=== PATIENT | female | born 1930 | race Caucasian/White ===

== ENCOUNTER 2017-05-18 15:52 | Inpatient (IN) ==
[2017-05-18] MEDS ORDERED: Piperacillin/Tazobactam 3.375 GM in D5% in Water (Mini-Bag+) 100 ML IVPB ONE (16:45)
--- NOTE | 2017-05-18 16:49 | Emergency Department Note ---
Disposition Clinical Impression: Bowel perforation Disposition: Admitted As Inpatient Condition: Serious Referrals: NONE,PCP [Primary Care Provider] - Forms: Work/School Release, ED Satisfaction Letter Time of Disposition: 16:49 General Adult HPI - General Chief complaint: ED Abdominal Pain Stated complaint: abd pain Time Seen by Provider: 05/18/17 16:05 Source: patient, EMS Limitations: no limitations - History of Present Illness Pain Scale: 0 - Related Data Home Medications Medication Instructions Recorded Confirmed Atenolol [Tenormin] 50 mg PO DAILY 08/24/15 05/18/17 Omeprazole [PriLOSEC] 20 mg PO DAILY 08/31/16 05/18/17 Allergies Allergy/AdvReac Type Severity Reaction Status Date / Time No Known Allergies Allergy Verified 08/31/16 08:17 Past Medical History - Past Medical History Medical history: Reports: GERD, glaucoma, hypertension, other Surgical history: Reports: knee replacement Psychiatric history: Reports: no psych history - Social History Smoking Status: Never smoker Smokeless Tobacco Status: No Alcohol use: Reports: none Drug use: Reports: none Physical Exam - General Limitations: no limitations General appearance: alert, in no apparent distress Course Vital Signs Temperature 103.1 F H 05/18/17 15:57 Pulse Rate 108 05/18/17 15:57 Respiratory Rate 24 05/18/17 15:57 Blood Pressure 160/75 05/18/17 15:57 O2 Sat by Pulse Oximetry 95 05/18/17 15:57 Temperature 103.1 F H 05/18/17 15:57 Pulse Rate 108 05/18/17 15:57 Respiratory Rate 24 05/18/17 15:57 Blood Pressure 160/75 05/18/17 15:57 O2 Sat by Pulse Oximetry 95 05/18/17 15:57 Oxygen Delivery Oxygen Delivery Room Air Attestation Statement - Attestation Attestation: I did not participate in the care of this patient. The patient presented as a transfer from an outside facility as a staff from visit for the surgeon to be admitted for bowel perforation. He did request that I order an IV and IV Zosyn. This was done. I did not otherwise participate in the care of this patient
[2017-05-18] MEDS ORDERED: *HR* Succinylcholine 200 MG/10 ML VIAL IVP ONE (17:08)
[2017-05-18] MEDS ORDERED: *HR* Etomidate 40 MG/20 ML VIAL IVP ONE (17:08)
[2017-05-18] MEDS ORDERED: Lidocaine -MPF 2% 2 ML VIAL ONE (17:08)
[2017-05-18] MEDS ORDERED: *HR* FentaNYL (PF) 100 MCG/2 ML VIAL ONE (17:10)
[2017-05-18] MEDS ORDERED: *HR* Rocuronium Bromide 50 MG/5 ML VIAL ONE (17:11)
--- NOTE | 2017-05-18 17:26 | Anesthesia Evaluation PreOp ---
Date of Encounter: 05/18/17 Time of Encounter: 17:59 - Past History Planned Operation: exploratory celiotomy Cardiac History: HTN Pulmonary History: Denies Any Significant HX MATERIAL ASSEMBLER History: Denies Any Significant HX Other Medical History: Other (glaucoma, free peritoneal air (likely perforated sigmoid per CT abdomen/pelvis)) Alcohol Use: none Drug use: none Medications and Allergies Atenolol [Tenormin] 50 mg PO DAILY 08/24/15 [History] Omeprazole [PriLOSEC] 20 mg PO DAILY 08/31/16 [History] Acetaminophen [Tylenol] 500 mg PO Q6HR PRN 05/18/17 [History] Diclofenac Sodium [Voltaren] 1 appl TP QID PRN 05/18/17 [History] Latanoprost [Xalatan] 1 drop OP HS 05/18/17 [History] Meloxicam [Mobic] 7.5 mg PO DAILY 05/18/17 [History] Allergies No Known Allergies Allergy (Verified 08/31/16 08:17) HAS ADVERSE REACTION TO AN ANTIBIOTIC, NAME UNKNOWN - Meds/Allergy Pre-op Review Medications Reviewed: Yes Allergies Reviewed: Yes Beta Blockers on Current Med List: Yes (atenolol) If Beta Blockers taken, Date/Time (Last Dose taken): 05-18-17 atnolol 8 am Anesthesia Results - Labs Laboratory Tests 05/18/17 05/18/17 05/18/17 13:30 13:30 13:30 WBC 8.3 Hgb 12.8 Hct 37.5 Plt Count 182 PT 12.4 H INR 1.1 APTT 36.2 H VBG Lactic Acid Sodium 138 Potassium 4.6 H Chloride 103 Carbon Dioxide 23 BUN 20 Creatinine 0.99 Est GFR ( Amer) > 60 Est GFR (Non-Af Amer) 53 L BUN/Creatinine Ratio 20 Glucose 103 H Calculated Osmolality 289 Calcium 9.3 05/18/17 13:30 WBC Hgb Hct Plt Count PT INR APTT VBG Lactic Acid 1.8 Sodium Potassium Chloride Carbon Dioxide BUN Creatinine Est GFR ( Amer) Est GFR (Non-Af Amer) BUN/Creatinine Ratio Glucose Calculated Osmolality Calcium - Imaging EKG: report reviewed, image reviewed (: SINUS BRADYCARDIA MARKED LEFT AXIS DEVIATION MODERATE VOLTAGE CRITERIA FOR LVH, CONSIDER NORMAL VARIANT) Anesthesia Exam Last Vital Signs Temp 103.1 F H 05/18/17 15:57 Pulse 103 05/18/17 16:46 Resp 22 05/18/17 16:46 BP 132/61 05/18/17 16:46 Pulse Ox 95 05/18/17 16:46 - HEENT Pupil (Motor): Pupils equal, EOMI Mallampati: III Teeth: Missing, Poor dentition Oral Opening: Greater than 3 - MATERIAL ASSEMBLER LOC: Oriented MATERIAL ASSEMBLER Motor: Normal RUE, Normal LUE, Normal RLE, Normal LLE, Normal Face - Cardiac Rhythm: Regular Murmur: None - Pulmonary Breath Sounds: bilateral Clear Respiratory Effort: Symmetrical Anesthesia Assess/Plan ASA Score: 2, E Modified Nellie Scale for Level of Consciousness: Cooperative, oriented, and tranquil Anesthetic Plan: General Monitoring Plan: Standard Monitors Recovery Plan: ICU
[2017-05-18] MEDS ORDERED: Lidocaine -MPF 4% 5 ML AMPUL ONE (18:24)
--- NOTE | 2017-05-18 18:30 | General Surg History&Physical ---
Date of Encounter: 05/18/17 Time of Encounter: 16:50 History of Present Illness Chief complaint: Acute abdominal pain, pneumoperitoneum consistent with perforated viscus HPI: Ms. Callahan is a 87 year old female transferred from [facility] after tenting there was approximately at 48 hour history of abdominal pain. Patient indicates his symptoms started yesterday but became acutely intense today. This was not associated with any nausea or vomiting. The patient presented to the [facility] ED for further evaluation and treatment. She was in significant distress, but afebrile and hemodynamically stable. White count was 8.3 with a hemoglobin of 12.8. CT of the abdomen and pelvis demonstrated scattered foci of air in the upper and lower abdomen/pelvis. Stomach and duodenum were unremarkable. A stable diverticulum in the descending duodenum was noted. There was no mural thickening of the stomach, duodenum, or jejunum. Numerous diverticula of the sigmoid colon are described with a small amount of free air in the right lower pelvis. Cholelithiasis without obvious inflammatory changes of the gallbladder is also described. Findings were consistent with a perforated viscus. The exact location of the perforation could not be identified. The patient was transferred to [facility] ED for surgical evaluation and possible surgery Past medical history: GERD, glaucoma, hypertension Surgical history: Total knee replacement Allergies: No known drug allergies Medications: Atenolol 50 mg by mouth daily Omeprazole 20 mg by mouth daily Social history: Patient is and lives with her spouse of 68 years; she does not smoke, never has, she denies any alcohol or illicit drug use. Physical examination: An elderly patient resting comfortably in her ED bed. She appeared to be in no acute distress, but this is related to IV morphine administered prior to my presentation to bedside. The patient was febrile to 103.1, pulse 108, respirations 24, blood pressure 160/75. 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 No obvious masses - though the abdominal exam was limited by the involuntary guarding. Bowel sounds were active. Did not elicit any rebound. Extremities: No obvious clubbing cyanosis or edema though answers arthritic changes are noted in multiple joints of the hands. Laboratories: White count 8.3, hemoglobin 12.8, hematocrit 37.5, platelet count 182,000; differential is unremarkable Sodium 138, potassium 4.6, chloride 103, BUN 20, creatinine 0.99. eGFR 53 Comparison with labs dated 09/08/16 - the results are essentially stable. Urinalysis: PH 7.0, specific gravity 1.020; nitrates positive, small amount of leukocyte esterase with 0-3 red cells per high-powered field 5-15 white cells per high-power field. Impression: #1 Abdominal pain secondary perforated viscus. She was focally tender in the left upper quadrant but on my review of the CT with [facility] - it is considered most likely the pneumoperitoneum is due to a colonic perforation. #2 fever and tachycardia - 2 SIRS criteria for sepsis #3 hypertension #4 GERD Recommendations: IV fluids, broad-spectrum IV antibiotics to cover potential colonic francisco; IV pain control and surgery. The patient and her family "want everything done". An exploratory celiotomy was discussed in detail. Risks include Hemorrhage, infection, intra-abdominal abscess, injury to adjacent structures , pneumonia/respiratory failure; cardiac dysrhythmia and/or UT. If colonic perforation is encountered - a colostomy will become necessary. The patient hopes this will not be necessary but understands should a colostomy be created. The patient and her family have expressed understanding. I attempted to answer all questions. We will proceed to the OR ALAN. Consent has been obtained. Post op transfer to ICU has been arranged. Past Med Surg Social Fam HX - Past Medical History Medical history: GERD, glaucoma, hypertension, other Psychiatric history: no psych history - Past Surgical History Surgical History: knee replacement - Social History Smoking Status: Never smoker Smokeless Tobacco Status: No Alcohol use: none Drug use: none Medications and Allergies Atenolol [Tenormin] 50 mg PO DAILY 08/24/15 [History] Omeprazole [PriLOSEC] 20 mg PO DAILY 08/31/16 [History] Acetaminophen [Tylenol] 500 mg PO Q6HR PRN 05/18/17 [History] Diclofenac Sodium [Voltaren] 1 appl TP QID PRN 05/18/17 [History] Latanoprost [Xalatan] 1 drop OP HS 05/18/17 [History] Meloxicam [Mobic] 7.5 mg PO DAILY 05/18/17 [History] Allergies No Known Allergies Allergy (Verified 08/31/16 08:17) HAS ADVERSE REACTION TO AN ANTIBIOTIC, NAME UNKNOWN Review of Systems All systems PM: A 10-system review of systems was performed and is negative for pertinent findings except as documented above in the HPI. General Surgery Exam Initial Vital Signs Temp Pulse Resp BP Pulse Ox 103.1 F H 108 24 160/75 95 05/18/17 15:57 05/18/17 15:57 05/18/17 15:57 05/18/17 15:57 05/18/17 15:57 Results - Labs All other labs normal.
[2017-05-18] MEDS ORDERED: Lacri-Lube 3.5 GM TUBE ONE (18:41)
[2017-05-18] MEDS ORDERED: *HR* HYDROmorphone 2 MG/ML SYRINGE ONE (19:05)
[2017-05-18] MEDS ORDERED: Dexamethasone 4 MG/ML VIAL ONE (19:50)
[2017-05-18] MEDS ORDERED: Ondansetron 4 MG/2 ML VIAL ONE (19:50)
[2017-05-18] MEDS ORDERED: Neostigmine Methylsulfate 3 MG/3 ML SYRINGE ONE (19:51)
[2017-05-18] MEDS ORDERED: Acetaminophen 325 MG TABLET PO PRN (20:41)
[2017-05-18] MEDS ORDERED: *HR* HYDROcodone/Acet 5/325 mg TABLET PO PRN (20:44)
[2017-05-18] MEDS ORDERED: *HR* HYDROmorphone (PF) 1 MG/ML SYRINGE IVP PRN (20:44)
[2017-05-18] MEDS ORDERED: Ondansetron 4 MG/2 ML VIAL IVP PRN (20:44)
[2017-05-18] MEDS: Ringers Solution, Lactated 1,000 ML IVC SCH (21:00)
--- NOTE | 2017-05-18 21:02 | Operative Note ---
Date of procedure: 05/18/17 Pre-op diagnosis: acute abd pain, pneumoperitoneum Post-op diagnosis: same Procedure: exploratory celiotomy, incidental appendectomy Complications: none apparent Anesthesia: GETA Surgeon: Gagan Infante Estimated blood loss (cc): 5 IV fluids (cc): 1,500 Specimen: appendix Condition: stable Disposition: PACU Procedure in Detail: The patient was brought to the operating room where she was placed supine upon the operating room table. The patient was appropriately identified as to person and procedure. The accuracy of this information was confirmed by the procedure team. Patient was then intubated and anesthetized under the supervision of Dr. Florian Gerardo. The abdomen was prepped and draped in usual sterile fashion. A Arndt catheter was inserted. An OG tube was passed. A midline incision was then created with a #10 scalpel beginning midway between the umbilicus and the xiphoid extending caudal to the umbilicus. The incision was extended to the fascia. Bleeding points were controlled with electrocautery. The fascia was divided in the midline. The abdominal cavity was entered atraumatically. Exposure was facilitated with the use of an omni- Tract self-retaining retractor. In entering the abdominal cavity, a segment of inflamed mid to distal jejunum was encountered. The antimesenteric border was inflamed and hemorrhagic but there was no obvious perforation. The small bowel was examined from the ligament of Treitz to the ileocecal valve. Except for this 15-20 cm segment of inflamed jejunum no other abnormalities were detected. There was no perforation. The cecum appeared normal and was filled with air. The attached appendix appeared normal. The mesoappendix was divided at the junction between the appendix and cecum. The appendix was transected using an Ethicon [place] 30 mm stapler. The mesoappendix was divided with the aid of a Covidien impact dissector. The cecum and ascending colon was mobilized by incising the lateral peritoneal reflection demonstrating no abnormalities. The transverse colon was filled with air with no inflammation or wall thickening or obvious perforation. The splenic flexure and descending colon also appeared normal. The sigmoid colon was notable for extensive diverticulosis but there was no obvious perforation. A small amount of inflammatory fluid was encountered in the pelvis. This was a robotically and anaerobically cultured and then evacuated with the suction device. The uterus appeared multiparous without significant abnormality or fibroids. Tubes and ovaries were identified bilaterally and appeared normal. The ovaries were atrophic. With no bowel findings I turned my attention to the stomach. The anterior stomach demonstrated no inflammation, wall thickening, or perforation. The lesser sac was entered, the posterior gastric wall was also intact. The hepatic flexure was mobilized to allow inspection and mobilization (kocherization) of the duodenum. The gallbladder was distended, the demonstrated stone on CT was not palpable. There is no wall thickening pericholecystic fluid or obvious inflammation. The liver appeared grossly unremarkable. The source of the patient's abdominal pain and pneumoperitoneum was not apparent on this initial exploration/examination. The stomach gallbladder liver were all reexamined. The duodenum was reexamined. Small bowel was again examined from the ligament of Treitz to the ileocecal valve with no abnormalities encountered other than the inflamed segment described earlier. The colon was again examined from the ileocecal valve to the rectosigmoid. The sigmoid was mobilized by incising the lateral peritoneal reflection. No perforation, succus entericus or stool was evident the peritoneal cavity. Dry lap sponges were placed in the pelvis, along the left paracolic gutter, along the right paracolic gutter and in the lesser sac. With examination and manipulation no abnormal staining of the lap sponges was encountered. The lap sponges were removed. Sponge count was conducted and found to be the peritoneum was closed with a running interlocking 0 Vicryl. The fascia was closed with interrupted [id number] of 0 Vicryl. The subcutaneous tissue was reapproximated with running 3-0 Vicryl. Skin edges were approximated with rhiannon. Dressings were applied. At the completion of surgery, needle, sponge, and instrument counts were correct. The patient was taken to ICU for continued observation and postoperative monitoring.
[2017-05-19] MEDS: Ringers Solution, Lactated 1,000 ML IVC SCH (01:23)
[2017-05-19 01:51] LABS: BUN/Creatinine Ratio 18 (6-26); Blood Urea Nitrogen 17 mg/dL (7-20); Calcium 8.2 mg/dL (8.6-10.8); Carbon Dioxide 24 mEq/L (19-29); Chloride 102 mEq/L (98-109); Glucose 131 mg/dL (70-99); Osmolality,Calculated 279 (280-300); Potassium 4.1 mEq/L (3.5-4.5); Sodium 133 mEq/L (136-145); eGFR For African Americans > 60 (> 60); eGFR For Non-African Americans 58 (> 60)
[2017-05-19 02:17] LABS: Hematocrit 37.2 % (35.3-44.9); Mean Corpuscular HGB Conc 32.3 g/dL (31.6-35.5); Mean Corpuscular Hemoglobin 28.2 pg (28.0-33.3); Mean Corpuscular Volume 87.5 fL (83.0-100.0); Platelet Count 169 K/mcL (140-400); Red Blood Count 4.25 M/mcL (3.82-4.97); Red Cell Distribution Width 13.2 % (11.5-14.5)
[2017-05-19 03:25] LABS: Lymphocytes # 1.3 K/mcL (0.6-4.6); Monocytes # 0.3 K/mcL (0.0-1.3); Neutrophils # 13.9 K/mcL (1.6-8.9); Platelet Estimate Normal (Normal)
--- NOTE | 2017-05-19 09:20 | General Surgery Progress Note ---
Date of Encounter: 05/19/17 Time of Encounter: 09:13 Subjective Patient reports: feels better Narrative: General Surgery - POD #1 Patient has remained afeb, hemodynamically stable since surgery. Preoperative pain is resolved and has not recurred Maximum temperature 99.5, pulse 79, respirations 20, blood pressure 154/74 Lungs: bibasilar rales; weak cough Cardiac: Regular rate, no appreciable murmur Abdomen: Soft, active bowel sounds. Minimal roberto-incisional pain. Incision clean and dry. Urine output 325 mL last evening, 700 mL so far today Laboratories: White count 16.1 with 30% bands and 13.9% neutrophils. - markedly elevated from preoperative values, likely response to surgery Hemoglobin 12.0, hematocrit 37. Electrolytes, BUN, creatinine remains stable, sodium is noted low at 133. eGFR increased to 58 (previously 53) Impression: Postoperative day 1, status post exploratory celiotomy with incidental appendectomy after patient presented to [facility] ED with acute abdominal pain with radiologic findings pneumoperitoneum. Exploration failed to identify the source of the intraperitoneal air Postoperative status stable Plan: Transfer to general bed Objective Vital Signs - Last 8 Hours Temp Pulse Resp BP Pulse Ox 05/19/17 07:39 79 96 05/19/17 07:31 99.5 F 05/19/17 07:00 79 20 154/74 96 05/19/17 06:30 72 19 146/65 95 05/19/17 05:00 73 14 138/65 95 05/19/17 04:38 97.3 F L 05/19/17 04:15 80 17 144/69 95 05/19/17 04:00 81 17 144/69 95 05/19/17 03:00 77 15 150/71 96 05/19/17 02:00 80 12 142/64 97 Intake and Output 05/18/17 05/19/17 05/19/17 23:59 07:59 15:59 Intake Total 100 / 100 1000 / 1000 240 / 240 Output Total 330 / 330 600 / 600 100 / 100 Balance -230 / -230 400 / 400 140 / 140 Intake: IV Fluids 100 / 100 1000 / 1000 Lactated Ringers 1,000 ML 1000 / 1000 @ 100 mls/hr IVC .Q10H PACO Rx#:[id number] Zosyn 3.375 GM In 100 / 100 Dextrose 5% (Minibag+) 100 ML 100 ML @ 25 mls/hr IVPB ONCE ONE Rx#: [id number] Oral 0 / 0 0 / 0 240 / 240 Output: Estimated Blood Loss 5 / 5 Catheter 325 / 325 600 / 600 100 / 100 Other: Meal Breakfast Percent of Meal Consumed 100% Weight 64.1 kg 63.2 kg Blood Glucose* 137 Patient Weight 05/19/17 23:59 Weight 63.2 kg - Labs 05/19/17 01:29 05/19/17 01:29 Diabetes panel 05/19/17 Range/Units 01:29 Sodium 133 L (136-145) mEq/L Potassium 4.1 (3.5-4.5) mEq/L Chloride 102 (98-109) mEq/L Carbon Dioxide 24 (19-29) mEq/L BUN 17 (7-20) mg/dL Creatinine 0.92 (0.57-1.11) mg/dL Glucose 131 H (70-99) mg/dL Calcium 8.2 L (8.6-10.8) mg/dL Calcium panel 05/19/17 Range/Units 01:29 Calcium 8.2 L (8.6-10.8) mg/dL Pituitary panel 05/19/17 Range/Units 01:29 Sodium 133 L (136-145) mEq/L Potassium 4.1 (3.5-4.5) mEq/L Chloride 102 (98-109) mEq/L Carbon Dioxide 24 (19-29) mEq/L BUN 17 (7-20) mg/dL Creatinine 0.92 (0.57-1.11) mg/dL Glucose 131 H (70-99) mg/dL Calcium 8.2 L (8.6-10.8) mg/dL Adrenal panel 05/19/17 Range/Units 01:29 Sodium 133 L (136-145) mEq/L Potassium 4.1 (3.5-4.5) mEq/L Chloride 102 (98-109) mEq/L Carbon Dioxide 24 (19-29) mEq/L BUN 17 (7-20) mg/dL Creatinine 0.92 (0.57-1.11) mg/dL Glucose 131 H (70-99) mg/dL Calcium 8.2 L (8.6-10.8) mg/dL - VTE Documentation of Mechanical Device: Intermittent pneumatic compression device Consult Discharge Plan - Plan Referrals: Christian Grayson [Primary Care Provider] -
[2017-05-19] MEDS ORDERED: Acetaminophen 325 MG TABLET PO PRN (11:13)
[2017-05-19] MEDS ORDERED: *HR* HYDROmorphone (PF) 1 MG/ML SYRINGE IVP PRN (11:13)
[2017-05-19] MEDS ORDERED: *HR* HYDROcodone/Acet 5/325 mg TABLET PO PRN (11:13)
[2017-05-19] MEDS: Albuterol 2.5 MG/3 ML NEBULIZER IH SCH ×3 (15:54→22:31)
[2017-05-19] MEDS: Ondansetron 4 MG/2 ML VIAL IVP PRN (19:49)
[2017-05-19] MEDS ORDERED: Latanoprost 2.5 ML BOTTLE LEFT EYE SCH (21:00)
[2017-05-20 03:27] LABS: Basophils % 0.1 %; Eosinophils % 0.1 %; Hematocrit 35.5 % (35.3-44.9); Hemoglobin 11.6 g/dL (11.5-15.4); Immature Granulocytes % 0.5 % (0-4); Lymphocytes % 6.7 %; Mean Corpuscular HGB Conc 32.7 g/dL (31.6-35.5); Mean Corpuscular Hemoglobin 28.7 pg (28.0-33.3); Mean Corpuscular Volume 87.9 fL (83.0-100.0); Mean Platelet Volume 10.8 fL (9.4-12.4); Monocytes # 0.6 K/mcL (0.0-1.3); Monocytes % 3.8 %; Neutrophils # 13.4 K/mcL (1.6-8.9); Platelet Count 169 K/mcL (140-400); Red Blood Count 4.04 M/mcL (3.82-4.97); Red Cell Distribution Width 13.3 % (11.5-14.5); Segmented Neutrophils % 88.8 %
[2017-05-20] MEDS: Ondansetron 4 MG/2 ML VIAL IVP PRN (03:40)
[2017-05-20 03:41] LABS: Calcium 8.6 mg/dL (8.6-10.8)
[2017-05-20] MEDS: Albuterol 2.5 MG/3 ML NEBULIZER IH SCH ×4 (03:53→21:59)
[2017-05-20 15:00] VITALS: BP 173/81
--- NOTE | 2017-05-20 17:17 | General Surgery Progress Note ---
Date of Encounter: 05/20/17 Time of Encounter: 17:17 Subjective Patient reports: feels better, no bowel movement Narrative: General Surgery - Progress note / discharge summary Patient indicates she feels better; denies any abdominal pain. He does admit to nausea but no emesis. Afebrile, currently 98.2; pulse 75, respirations 16, blood pressure 173/81. Lungs: Clear to auscultation no obvious pain on deep inspiration Abdomen: Soft, no obvious tenderness. No obvious intra-abdominal masses. Active bowel sounds Patient complaining of no BM for the last 48 hours, however, at the time of exploratory celiotomy bowel was not distended but actually fairly decompressed Laboratories: Leukocytosis persists, 15,000 (previously 16.1) hemoglobin 11.6, hematocrit 35.5 Band neutrophils resolved, neutrophils still elevated at 13.4% Electrolytes essentially unchanged, BUN 21, creatinine 1.07; eGFR has diminished to 48 Urine culture obtained on presentation at [facility] E coli sensitive to all ATB except TMP/sulfa Pelvic fluid culture (at the time of surgery) - also Escherichia coli sensitivities pending Impression: Abdominal pain with radiologic evidence of pneumoperitoneum - status post exploratory celiotomy with no significant findings Diverticulosis sigmoid colon UTI secondary to Escherichia coli Patient feeling much improved and anxious to go home. Status satisfactory for management as outpatient Plan: Discharge home Follow up in the office within 4 days - patient to call office in AM to make follow up appointment Patient may consume regular diet Rx ondansetron ODT for nausea RX cefazolin 500 mg po TID x 5 days Tylenol, ibuprofen, Motrin, ADvil as needed for pain. Activities as tolerated, no lifting more than 20# Resume home meds Objective Vital Signs - Last 8 Hours Temp Pulse Resp BP Pulse Ox 05/20/17 14:59 98.2 F 75 16 173/81 92 05/20/17 11:04 98.7 F 73 14 152/72 92 Intake and Output 05/20/17 05/20/17 05/20/17 07:59 15:59 23:59 Intake Total 0 / 0 0 / 0 Output Total 450 / 450 1 / 1 Balance -450 / -450 -1 / -1 Intake: Oral 0 / 0 0 / 0 Output: Urine 450 / 450 0 / 0 Emesis 1 / 1 Other: Meal Lunch Percent of Meal Consumed 5% # Voids 1 3 - Labs 05/20/17 02:49 05/20/17 02:49 Diabetes panel 05/20/17 Range/Units 02:49 Sodium 134 L (136-145) mEq/L Potassium 4.0 (3.5-4.5) mEq/L Chloride 101 (98-109) mEq/L Carbon Dioxide 24 (19-29) mEq/L BUN 21 H (7-20) mg/dL Creatinine 1.07 (0.57-1.11) mg/dL Glucose 113 H (70-99) mg/dL Calcium 8.6 (8.6-10.8) mg/dL Calcium panel 05/20/17 Range/Units 02:49 Calcium 8.6 (8.6-10.8) mg/dL Pituitary panel 05/20/17 Range/Units 02:49 Sodium 134 L (136-145) mEq/L Potassium 4.0 (3.5-4.5) mEq/L Chloride 101 (98-109) mEq/L Carbon Dioxide 24 (19-29) mEq/L BUN 21 H (7-20) mg/dL Creatinine 1.07 (0.57-1.11) mg/dL Glucose 113 H (70-99) mg/dL Calcium 8.6 (8.6-10.8) mg/dL Adrenal panel 05/20/17 Range/Units 02:49 Sodium 134 L (136-145) mEq/L Potassium 4.0 (3.5-4.5) mEq/L Chloride 101 (98-109) mEq/L Carbon Dioxide 24 (19-29) mEq/L BUN 21 H (7-20) mg/dL Creatinine 1.07 (0.57-1.11) mg/dL Glucose 113 H (70-99) mg/dL Calcium 8.6 (8.6-10.8) mg/dL - VTE Documentation of Mechanical Device: Intermittent pneumatic compression device Consult Discharge Plan - Plan Referrals: Christian Grayson [Primary Care Provider] -
--- NOTE | 2017-05-20 17:20 | Discharge Summary ---
Outpatient Proc Discharge Plan - Plan Additional Instructions: Regular diet Patient may shower, wash incision with soap and water Activity as tolerated; lifting limited to less than 20 pounds Follow-up my office, 05/24/17. Patient to call office name to make this appointment Patient to follow up tomorrow if recurrent abdominal pain, worsening nausea, fevers or chills. Prescription for ondansetron ODT for nausea Prescription for cephalexin 500 mg 1 by mouth 3 times a day for Escherichia coli bladder infection Tylenol, ibuprofen, Motrin, Advil, Excedrin as needed for pain Prescriptions: Ondansetron ODT [Zofran ODT] 4 mg SL Q6HR PRN #12 tab.rapdis PRN Reason: Nausea Cephalexin [Keflex] 500 mg PO TID #15 capsule Home Medications: Atenolol [Tenormin] 50 mg PO DAILY 08/24/15 [History] Omeprazole [PriLOSEC] 20 mg PO DAILY 08/31/16 [History] Acetaminophen [Tylenol] 500 mg PO Q6HR PRN 05/18/17 [History] Diclofenac Sodium [Voltaren] 1 appl TP QID PRN 05/18/17 [History] Latanoprost [Xalatan] 1 drop OP HS 05/18/17 [History] Meloxicam [Mobic] 7.5 mg PO DAILY 05/18/17 [History] Cephalexin [Keflex] 500 mg PO TID #15 capsule 05/20/17 [Rx] Ondansetron ODT [Zofran ODT] 4 mg SL Q6HR PRN #12 tab.rapdis 05/20/17 [Rx]
== END 2017-05-20 18:40 | disposition home or self-care (01) | DRG 342 ==
LOC: EMEROO 15:52 → ICNU 17:02 → 3ANU 05-19 11:01
PROVIDERS: ADMIT Surgery; ATTEND Surgery

== ENCOUNTER 2017-12-24 14:33 | Inpatient (IN) ==
--- NOTE | 2017-12-23 21:27 | Discharge Summary ---
<Chanelle Pride - Last Filed: 12/23/17 21:23> Date of Encounter: 12/23/17 - Discharge Diagnosis (1) Arthritis of knee, left Priority: Primary Status: Acute (2) Status post total knee replacement, left Priority: Primary Status: Acute (3) HTN (hypertension) Priority: Secondary Status: Chronic Qualifiers: Hypertension type: essential hypertension Qualified Code(s): I10 - Essential (primary) hypertension (4) Cystitis Priority: Secondary Status: Chronic (5) CKD (chronic kidney disease), stage III Priority: Secondary Status: Chronic - Hospital Course Hospital course: Ms. Callahan is a 87 year old female - Time Spent with Patient Total time spent providing and/or coordinating discharge services: - Discharge Medications Home Medications: Atenolol [Tenormin] 50 mg PO DAILY 08/24/15 [History] Omeprazole [PriLOSEC] 20 mg PO DAILY 08/31/16 [History] Latanoprost [Xalatan] 1 drop OP HS 05/18/17 [History] Aspirin Enteric Coated [Aspirin EC] 325 mg PO BID 10 Days #20 tablet. [Rx] OxyCODONE Immed Rel [Roxicodone 5 MG] 5 mg PO Q6HR PRN 7 Days #28 tablet [Rx] Allergies/Adverse Reactions: 3 Allergy/AdvReac Type Severity Reaction Status Date / Time celecoxib [From Celebrex] Allergy Headache Verified 12/24/17 16:58 Sulfa (Sulfonamide Allergy Nausea Verified 12/24/17 16:58 Antibiotics) Primary care physician: Jarred Grayson MD - Patient Status Disposition: Home Health Service Condition: Good - Discharge Instructions Follow Up With: Jarred Grayson MD [Primary Care Provider] - <Naveen Morton - Last Filed: 12/26/17 06:34> Orders not resulted at time of discharge: Pending orders 12/24/17 00:01 XR knee LT limited 1-2V [XR] Routine H/H [Hemoglobin and Hematocrit] [HEME] Routine Date of Encounter: 12/26/17 Time of Encounter: 06:34 - Discharge Diagnosis (1) Arthritis of knee, left Priority: Primary Status: Chronic (2) Status post total knee replacement, left Priority: Primary Status: Acute (3) HTN (hypertension) Priority: Secondary Status: Chronic Qualifiers: Hypertension type: essential hypertension Qualified Code(s): I10 - Essential (primary) hypertension (4) CKD (chronic kidney disease), stage III Priority: Secondary Status: Chronic - Hospital Course Hospital course: Ms. Callahan is a 87 year old female Status post left total knee replacement The patient had an uneventful postoperative course. They received antibiotics and physical therapy and were discharged in stable condition. There will follow -up in the office in 2 weeks. - Time Spent with Patient Total time spent providing and/or coordinating discharge services: Primary care physician: Jarred Grayson MD - Patient Status Functional capacity at discharge: uses cane/walker Overall status at discharge: patient is progressing back to baseline
--- NOTE | 2017-12-23 21:48 | Physician Discharge Referral ---
ExtendedCare Referral Info Transfer To: [facility] Provider in Charge: Provider in Charge after Transfer: PCP Institutional Level of Care: Skilled - Diagnosis (1) Arthritis of knee, left Priority: Primary Status: Acute (2) Status post total knee replacement, left Priority: Primary Status: Acute (3) HTN (hypertension) Priority: Secondary Status: Chronic (4) Cystitis Priority: Secondary Status: Chronic (5) CKD (chronic kidney disease), stage III Priority: Secondary Status: Chronic Expected Duration of Placement: < 30 day Prognosis: Good Aware of Diagnosis: Patient Aware of Prognosis: Patient - Transfer Medications Prescriptions: OxyCODONE Immed Rel [Roxicodone 5 MG] 5 mg PO Q6HR PRN 7 Days #28 tablet PRN Reason: Severe Pain Aspirin Enteric Coated [Aspirin EC] 325 mg PO BID 10 Days #20 tablet. Home Medications: Atenolol [Tenormin] 50 mg PO DAILY 08/24/15 [History] Omeprazole [PriLOSEC] 20 mg PO DAILY 08/31/16 [History] Acetaminophen [Tylenol] 500 mg PO Q6HR PRN 05/18/17 [History] Diclofenac Sodium [Voltaren] 1 appl TP QID PRN 05/18/17 [History] Latanoprost [Xalatan] 1 drop OP HS 05/18/17 [History] Meloxicam [Mobic] 7.5 mg PO DAILY 05/18/17 [History] Ondansetron ODT [Zofran ODT] 4 mg SL Q6HR PRN #12 tab.rapdis 05/20/17 [Rx] Aspirin Enteric Coated [Aspirin EC] 325 mg PO BID 10 Days #20 tablet. [Rx] OxyCODONE Immed Rel [Roxicodone 5 MG] 5 mg PO Q6HR PRN 7 Days #28 tablet [Rx] Allergies/Adverse Reactions: 3 Allergy/AdvReac Type Severity Reaction Status Date / Time celecoxib [From Celebrex] Allergy Headache Verified 12/13/17 10:27 Sulfa (Sulfonamide Allergy Nausea Verified 12/13/17 10:27 Antibiotics) - Respiratory Orders None Smoking Cessation: Smoking cessation has been advised. For more information, call the [place] Tobacco Quit Line at 3-484-QKCZ-NOW. - Ancillary Orders May use pressure relief devices daily prn, May go on PAUL w/family/respon alliance party w /meds at nurse discretion PRN, May consult with Dentist, Veterinary Toxicologist, Family Service Worker PRN - Mobility Orders Chair, Ambulate - Rehabiliation Orders Rehab Orders: ROM Exercises, Evaluation for Physical Therapy, Evaluation for Occupational Therapy - Treatments Skin tear care topically daily PRN per policy List/Other: Knee Continuity: Opsite dressing, leave intact until first post-operative visit. If dressing becomes >50% saturated, contact office, remove dressing and place appropriate dressing in its place. Do not allow for dressing to get wet. Zipline/Valeriano in place, plan to remove at post-operative day #14-16. Total Joint Precautions x 6 weeks Apply cold therapy wrap 3-6x/day for 20 minutes at a time. Encourage ambulation throughout the day Use Incentive spirometer 10x/hour. Elevate affected extremity above heart as tolerated. Brace: Wear knee immobilizer at night x 2 weeks.~ CERTIFICATION: I certify that the transfer of the above named patient to an Extended Care Facility is necessary for the continuing treatment of the diagnosis listed. The above information is true and accurate reflection of patient's current condition. Confidential - Redisclosure prohibited without a patient's written consent.
[2017-12-24] MEDS ORDERED: CeFAZolin Syr 2,000MG/20 ML 2,000 MG/20 ML SYRINGE IVPB ONE (14:52)
[2017-12-24] MEDS ORDERED: Ringers Solution, Lactated 1,000 ML IVC SCH ×2 (15:00→21:37)
--- NOTE | 2017-12-24 15:01 | History & Physical Report ---
Date of Encounter: 12/24/17 Time of Encounter: 15:01 24 Hour HP Update - Instructions Instructions: If the History and Physical is less than 30 days old and was completed prior to A.M. admission and or procedure and has NOT been updated on calendar day of procedure please complete this update prior to performing procedure. - Update Patient reports changes in Medical Condition: No Changes in examination, assessment, or condition: No Changes in Medication: No Preop tests/diagnostics Reviewed: Yes Surgery Remains Indicated: Yes Consent for Planned Operative Procedure(s) Verified: Yes - Pre-Operative Checklist Preoperative Checklist Indicated: No Prophylactic Antibiotic Ordered: Yes Is VTE Prophylaxis Indicated?: Yes
[2017-12-24] MEDS ORDERED: Ethanol\\Acetic Acid\\Na Ace\\Ben 1,000 ML IRRIG.SOLN IR ONE (15:29)
[2017-12-24] MEDS ORDERED: Famotidine 20 MG/2 ML VIAL IVP ONE (16:13)
[2017-12-24] MEDS ORDERED: Acetaminophen IV 1,000 MG/100 ML INFUS..BTL IVPB ONE (16:14)
[2017-12-24] MEDS ORDERED: *HR* Propofol 200 MG/20 ML VIAL IVP ONE (16:58)
[2017-12-24] MEDS ORDERED: Ketorolac 30 MG/ML VIAL ONE (16:58)
[2017-12-24] MEDS ORDERED: *HR* FentaNYL (PF) 100 MCG/2 ML VIAL ONE (16:58)
[2017-12-24] MEDS ORDERED: Ondansetron 4 MG/2 ML VIAL ONE (16:58)
[2017-12-24] MEDS ORDERED: *HR* Succinylcholine 200 MG/10 ML VIAL IVP ONE (16:58)
[2017-12-24] MEDS ORDERED: *HR* Midazolam HCl 2 MG/2 ML VIAL ONE (16:58)
[2017-12-24] MEDS ORDERED: Lidocaine -MPF 2% 2 ML VIAL ONE (16:58)
[2017-12-24] MEDS ORDERED: Dexamethasone 4 MG/ML VIAL ONE ×2 (16:58→17:16)
[2017-12-24] MEDS ORDERED: *HR* Rocuronium Bromide 50 MG/5 ML VIAL ONE (16:58)
[2017-12-24] MEDS ORDERED: ROPIVACAINE HCL/PF 0.5% 30 ML VIAL ONE (17:15)
--- NOTE | 2017-12-24 17:17 | Anesthesia Evaluation PreOp ---
Date of Encounter: 12/24/17 Time of Encounter: 17:15 - Past History Planned Operation: Left TKA Cardiac History: HTN Pulmonary History: Denies Any Significant HX RELIEF CHARGE NURSE History: Denies Any Significant HX Other Medical History: Other (Glaucoma) Anesthesia History: No Prior Anesthetic Complications : No Alcohol Use: none Drug use: none Medications and Allergies Atenolol [Tenormin] 50 mg PO DAILY 08/24/15 [History] Omeprazole [PriLOSEC] 20 mg PO DAILY 08/31/16 [History] Latanoprost [Xalatan] 1 drop OP HS 05/18/17 [History] Aspirin Enteric Coated [Aspirin EC] 325 mg PO BID 10 Days #20 tablet. [Rx] OxyCODONE Immed Rel [Roxicodone 5 MG] 5 mg PO Q6HR PRN 7 Days #28 tablet [Rx] 3 Allergy/AdvReac Type Severity Reaction Status Date / Time celecoxib [From Celebrex] Allergy Headache Verified 12/24/17 16:58 Sulfa (Sulfonamide Allergy Nausea Verified 12/24/17 16:58 Antibiotics) - Meds/Allergy Pre-op Review Medications Reviewed: Yes Allergies Reviewed: Yes Beta Blockers on Current Med List: Yes (Took Atenolol today 0700) Anesthesia Results - Labs Laboratory Tests 12/13/17 12/13/17 12/13/17 11:20 11:20 11:20 Hgb 14.4 Hct 45.7 H Plt Count 207 PT 11.5 INR 1.1 APTT 33.2 Sodium 139 Potassium 4.3 BUN 19 Creatinine 1.06 - Imaging EKG: report reviewed (SB) Anesthesia Exam O2 Sat Height 1.55 m Height 1.55 m Weight 61.235 kg Weight 61.235 kg O2 Sat by Pulse Oximetry 97 Vital Signs Temp Pulse Resp BP Pulse Ox 97.4 F L 64 18 195/79 97 12/24/17 14:56 12/24/17 14:56 12/24/17 14:56 12/24/17 14:56 12/24/17 14:56 Height: 5'1 Weight: 135 lbs NPO (# of Hours): MN Pain Scale: 0 - HEENT Pupil (Motor): Pupils equal, EOMI Mallampati: II Teeth: Normal Oral Opening: Greater than 3 - RELIEF CHARGE NURSE LOC: Oriented RELIEF CHARGE NURSE Motor: Normal RUE, Normal LUE, Normal RLE, Normal LLE, Normal Face RELIEF CHARGE NURSE Sensory: Normal: RUE, LUE, RLE, LLE, Face - Cardiac Rhythm: Regular Murmur: None JVD: No Carotid Bruit: No - Pulmonary Breath Sounds: bilateral Clear Respiratory Effort: Symmetrical Anesthesia Assess/Plan ASA Score: 3 (HTN) Modified Nellie Scale for Level of Consciousness: Cooperative, oriented, and tranquil Anesthetic Plan: Regional, MAC Monitoring Plan: Standard Monitors Recovery Plan: PACU (Discussed SAB and Adductor Canal Block, possible GA, agrees to proceed)
--- NOTE | 2017-12-24 18:15 | Anesthesia Procedures ---
Date of Encounter: 12/24/17 Time of Encounter: 17:30 Procedures: Anesthesia - Epidural/Spinal Patient ID/Chart reviewed: Yes Patient examined: Yes Consent Obtained: Yes Supplemental Oxygen: Nasal Cannula Supplemental Oxygen Rate (L/min): 2 Site Prep: Sterile prep and drape, Povidone-Iodine 1% Patient position: upright Local Anesthetic: Lidocaine 1% Amount of Local Anesthetic used: 2 Interspace Used: L3-L4 Blood: No CSF: Yes Paresthesia: No Spinal Needle Gauge: 22 Spinal Dose: 1.2ml 0.5 bupivicaine (isobaric)+ 200mcg duramorph
--- NOTE | 2017-12-24 18:17 | Anesthesia Procedures ---
Date of Encounter: 12/24/17 Time of Encounter: 17:35 Procedures: Anesthesia - Nerve Block Procedure Date: 12/24/17 Time: 17:35 Allergies/Adv Reactions: celebrex, sulfa Surgical Procedure: Left TKA Checklist: Correct Patient Identifier, Correct procedure, History checked Correct side: Left Blood Thinner: No Monitor Applied: EKG, BP, Pulse Oximetry Supplemental Oxygen via Nasal Cannula (L/min): 2 Indication: Post Op Analgesia (per dr. escobar) Block Type: Other (adductor canal) Catheter placed: No Sterile Technique: Yes Ultrasound used: Yes Anatomy identified: Yes Visual spread of Local: Yes Neuro Stimulation: No Blood on Needle Aspiration: No Smooth Injection of Local: Yes Pain with Injection of Local: No Prep: Chlorhexadine Needle: 21 x 100 mm Stimuplex Local: Ropivacaine Volume (cc): 30cc with 8mg decadron Number of Attempts: 1 Complications: None/effective block Vitals: Vital Signs/O2 Sat/Glucose, Most Recent Temp Pulse Resp BP Pulse Ox 97.4 F L 64 18 195/79 97 12/24/17 18:04 12/24/17 18:04 12/24/17 18:04 12/24/17 18:04 12/24/17 18:04 Comments: [facility]
--- NOTE | 2017-12-24 18:22 | Orthopedic Operative Note ---
Date of procedure: 12/24/17 Pre-op diagnosis: Left knee arthritis Post-op diagnosis: same Procedure: Procedure: Left Total knee replacement Estimated blood loss: 200 cc Hardware: Metal and polyethylene replacement. Arthrex Femur: 4 Tibia: 3 PS insert: 12 Patella: 34 Exam Under anesthesia: Loss of full extension 15 degrees Procedural Notes: Grade 4 arthritic changes all 3 compartments. Operative procedure: The patient was brought to the operating room and placed on the operating room table. After general anesthesia was administered the operative knee was examined. Findings were noted in the exam under anesthesia. The operative extremity was prepped and draped in sterile surgical fashion. The patient received IV antibiotics prior to skin incision. A standard midline incision was made centered over the patella. The incision was made through the skin and subcutaneous tissue. A medial parapatellar tendon approach was performed. Care was taken to preserve tissue along the medial aspect of the patella. And to protect the patella tendon. The deep MCL was released off the medial tibia. The infra patella fat pad was excised. Knee was brought into flexion. Patient with grade 4 arthritic changes all 3 compartments. The entry hole was made for the intramedullary femoral guide. The guide was seated in 6 degrees of valgus. Anterior cut was made followed by the distal cut. The ACL the PCL the medial and the lateral menisci were excised. The tibia was subluxed forward. The entry hole was made for the intramedullary tibial guide. Guide was seated to resect 2 mm off the more abnormal side. The knee was brought into flexion the distal femur was sized to a 4. The femoral guide was seated, the anterior cut was made followed by the posterior condylar cut, followed by the chamfer cuts. The finishing guide was seated the box cut was made and the lug holes were drilled. The tibia was sized to a 3, the tibial tray was seated and prepared with the large drill followed by the fin cutter. Trial reduction revealed full extension no varus valgus instability with the appropriate 12 PS Jessi. The patella was everted and cut was made at the level of the insertion of the quadriceps and patella tendon. The patella was sized to a 34 the guide was seated and the lug holes are drilled. Trial reduction revealed excellent patella tracking. All trial components were removed all bony surfaces were irrigated. The tibia was cemented first followed by the femur. The 12 PS Jessi was seated and the knee was brought into full extension. The patella was cemented and held in place with the patellar holding clamp. After the cement had hardened, the knee sat for 2 minutes with a antibacterial solution. The knee was then irrigated out with 2 L of pulse irrigation. The extensor mechanism was closed with #2 FiberWire suture and #2 PDS suture. The subcutaneous tissue was then irrigated and closed deep with #1 PDS suture superficially with 0 PDS suture and skin was closed with skin rhiannon. The patient was then placed in a sterile dressing and a postoperative brace extubated and transferred to recovery room in stable condition. Anesthesia: spinal Surgeon: Naveen Morton Was there an commercial loan assistant present: Yes Jewelry Bench Worker: Chanelle Pride Estimated blood loss (cc): 200 Condition: stable Disposition: PACU
[2017-12-24] MEDS ORDERED: EPHEDrine 50 MG/ML VIAL ONE (18:27)
--- NOTE | 2017-12-24 19:21 | Anesthesia Evaluation Post Op ---
Date of Encounter: 12/24/17 Time of Encounter: 19:20 - Vital Signs Vital Signs: Vital Signs/O2 Sat/Glucose, Most Current Temp Pulse Resp BP Pulse Ox 12/24/17 19:14 98 F 56 16 123/77 96 12/24/17 19:04 75 16 169/79 96 12/24/17 18:54 60 16 130/59 98 12/24/17 18:44 97.9 F 71 18 130/61 98 12/24/17 18:04 97.4 F L 64 18 195/79 97 12/24/17 17:42 70 18 188/92 98 12/24/17 17:19 68 18 168/78 98 - Lungs Lungs: Clear Ascult./Percussion - Airway Airway: Non-obstructed - Cardiovascular Regular Rate - Mental Status Mental Status: Alert & Oriented, Answers Appropriately - Pain Pain Scale: 0 - Nausea Vomiting Nausea Vomiting: Not Present - Hydration Hydration: Ice chips - Discharge PostOp Status: Transfer Patient to floor
[2017-12-24] MEDS ORDERED: Naloxone 0.4 MG/ML INJ IVP PRN ×2 (19:22→21:37)
[2017-12-24] MEDS ORDERED: Ondansetron 4 MG/2 ML VIAL IVP PRN ×2 (19:22→21:37)
[2017-12-24 19:25] LABS: Hematocrit 36.6 % (35.3-44.9); Hemoglobin 12.1 g/dL (11.5-15.4)
[2017-12-24] MEDS ORDERED: Temazepam 15 MG CAPSULE PO PRN (21:37)
[2017-12-24] MEDS ORDERED: MOM Conc 10 ML UD.LIQ PO PRN (21:37)
[2017-12-24] MEDS ORDERED: Sennosides 8.6 MG TABLET PO PRN (21:37)
[2017-12-24] MEDS: CeFAZolin Premix DUPLEX 2,000 MG/50 ML BAG IVPB SCH (22:56)
[2017-12-24] MEDS: Latanoprost 2.5 ML BOTTLE BOTH EYES SCH (23:27)
[2017-12-25] MEDS: *HR* Enoxaparin 30 MG/0.3 ML SYRINGE SQ SCH ×2 (04:56→16:06)
--- NOTE | 2017-12-25 06:30 | Orthopedics Progress Note ---
Date of Encounter: 12/25/17 Time of Encounter: 06:30 - Assessment and Plan (1) Arthritis of knee, left Current Visit: No Status: Chronic (2) Status post total knee replacement, left Current Visit: No Status: Acute (3) HTN (hypertension) Current Visit: No Status: Chronic Qualifiers: Hypertension type: essential hypertension Qualified Code(s): I10 - Essential (primary) hypertension (4) CKD (chronic kidney disease), stage III Current Visit: No Status: Chronic Subjective Interval history: Patient was seen this morning doing well without complaints. Afebrile vital signs stable. Operative extremity: Neurovascularly intact Dressing clean dry and intact Calves nontender Assessment and plan: Continue with postoperative care Patient is an 87-year-old female is unsafe to go home needed to be transferred to an ECF will require admission status. Objective Vital signs: Vital Signs Temp Pulse Resp BP Pulse Ox 12/25/17 03:07 97.6 F 62 16 135/59 93 12/24/17 23:31 97.6 F 69 16 143/73 95 12/24/17 23:08 97.6 F 70 14 143/73 95 12/24/17 22:30 97.6 F 69 16 143/63 96 12/24/17 21:03 97.8 F 63 14 159/79 97 12/24/17 20:30 97.6 F 63 14 180/72 97 12/24/17 19:53 98.2 F 62 14 180/72 97 12/24/17 19:23 60 16 139/59 96 12/24/17 19:14 98 F 56 16 123/77 96 12/24/17 19:04 75 16 169/79 96 12/24/17 18:54 60 16 130/59 98 12/24/17 18:44 97.9 F 71 18 130/61 98 12/24/17 18:04 97.4 F L 64 18 195/79 97 12/24/17 17:42 70 18 188/92 98 12/24/17 17:19 68 18 168/78 98 12/24/17 14:56 97.4 F L 64 18 195/79 97 Intake and Output 12/24/17 12/24/17 12/25/17 15:59 23:59 07:59 Intake Total 200 / 200 Output Total 200 / 200 Balance 0 / 0 Intake: Oral 200 / 200 Output: Urine 0 / 0 Estimated Blood Loss 200 / 200 Other: Meal Dinner Percent of Meal Consumed 100% # Voids 1 Weight 61.235 kg 61.235 kg - Labs CBC & BMP: 12/24/17 18:55 - VTE Documentation of Mechanical Device: Venous foot pump, device Consult Discharge Plan - Plan Referrals: Jarred Grayson MD [Primary Care Provider] -
[2017-12-25 06:56] LABS: Hematocrit 35.4 % (35.3-44.9); Hemoglobin 11.3 g/dL (11.5-15.4)
[2017-12-25] MEDS: *HR* OxyCODONE Immed Rel 5 MG TABLET PO PRN ×4 (07:09→23:04)
[2017-12-25 07:10] LABS: BUN/Creatinine Ratio 23 (6-26); Blood Urea Nitrogen 19 mg/dL (8-23); Calcium 8.9 mg/dL (8.6-10.3); Carbon Dioxide 24 mEq/L (23-29); Chloride 104 mEq/L (98-107); Glucose 157 mg/dL (70-105); Osmolality,Calculated 290 (280-300); Potassium 4.2 mEq/L (3.5-5.1); Sodium 137 mEq/L (136-145); eGFR For African Americans > 60 (> 60); eGFR For Non-African Americans > 60 (> 60)
[2017-12-25] MEDS: CeFAZolin Premix DUPLEX 2,000 MG/50 ML BAG IVPB SCH (09:20)
--- NOTE | 2017-12-25 15:49 | Event Note ---
Date of Encounter: 12/25/17 Time of Encounter: 12:20 PCR - POD#2 - Left TKR 12/24/17 Patient seen at bedside. Labs reviewed. Pain control: adequate Participating in PT. All questions and concerns addressed. Educated on use of incentive spirometer. Encouraged ambulation and proper hydration. Patient educated on post-operative restrictions and post-operative care. Addressed: Dressing changed d/t 50% saturation - bloody Discharge plan: Home with Sunday AM - cont placed
--- NOTE | 2017-12-25 15:50 | Physician Discharge Referral ---
Home Health/Hosp Referral Info Transfer to: Home Health Attending Provider: Provider in Charge Post Discharge: PCP - Diagnosis (1) Arthritis of knee, left Priority: Primary Status: Chronic (2) Status post total knee replacement, left Priority: Primary Status: Acute (3) HTN (hypertension) Priority: Secondary Status: Chronic (4) Cystitis Priority: Secondary Status: Chronic (5) CKD (chronic kidney disease), stage III Priority: Secondary Status: Chronic - Respiratory Orders None Smoking Cessation: Smoking cessation has been advised. For more information, call the [place] Tobacco Quit Line at 4-717-APKQ-NOW. - Diet/Nutrition Diet/Nutrition Orders: Regular - Activity Activity Orders: Up ad verna, Ambulate - Services Needed Following services are medically necessary services: Nursing, Home Health Aide, Physical Therapy, Occupational Therapy Home Care Orders: Knee Continuity: Opsite dressing, leave intact until first post-operative visit. If dressing becomes >50% saturated, contact office, remove dressing and place appropriate dressing in its place. Do not allow for dressing to get wet. Zipline/Mercedes in place, plan to remove at post-operative day #14-16. Total Joint Precautions x 6 weeks Apply cold therapy wrap 3-6x/day for 20 minutes at a time. Encourage ambulation throughout the day Use Incentive spirometer 10x/hour. Elevate affected extremity above heart as tolerated. Brace: Wear knee immobilizer at night x 2 weeks. - Transfer Medications Home Medications: Atenolol [Tenormin] 50 mg PO DAILY 08/24/15 [History] Omeprazole [PriLOSEC] 20 mg PO DAILY 08/31/16 [History] Latanoprost [Xalatan] 1 drop OP HS 05/18/17 [History] Aspirin Enteric Coated [Aspirin EC] 325 mg PO BID 10 Days #20 tablet. [Rx] OxyCODONE Immed Rel [Roxicodone 5 MG] 5 mg PO Q6HR PRN 7 Days #28 tablet [Rx] Allergies/Adverse Reactions: 3 Allergy/AdvReac Type Severity Reaction Status Date / Time celecoxib [From Celebrex] Allergy Headache Verified 12/24/17 16:58 Sulfa (Sulfonamide Allergy Nausea Verified 12/24/17 16:58 Antibiotics) Certification: Further, I certify that my clinical findings support that this patient is homebound (i.e. absences from home require considerable and taxing effort and are for medical reasons or buddhism services or infrequently or short duration when for other reasons) because: Homebound Reason: Patient requires assistance of a person or device to safely leave home Attestation: My signature below is to certify that this patient is under my care and that I, or nurse practitioner, or a physician's custody assistant working with me, has a face-to -face encounter with this patient.
[2017-12-25] MEDS: Latanoprost 2.5 ML BOTTLE BOTH EYES SCH (20:19)
[2017-12-26] MEDS: *HR* OxyCODONE Immed Rel 5 MG TABLET PO PRN ×2 (05:03→09:55)
[2017-12-26] MEDS: *HR* Enoxaparin 30 MG/0.3 ML SYRINGE SQ SCH (05:03)
[2017-12-26 06:31] LABS: Hematocrit 27.3 % (35.3-44.9)
--- NOTE | 2017-12-26 06:35 | Orthopedics Progress Note ---
Date of Encounter: 12/26/17 Time of Encounter: 06:35 - Assessment and Plan (1) Arthritis of knee, left Current Visit: No Status: Chronic (2) Status post total knee replacement, left Current Visit: No Status: Acute (3) HTN (hypertension) Current Visit: No Status: Chronic Qualifiers: Hypertension type: essential hypertension Qualified Code(s): I10 - Essential (primary) hypertension (4) CKD (chronic kidney disease), stage III Current Visit: No Status: Chronic Subjective Interval history: Patient was seen this morning doing well without complaints. Afebrile vital signs stable. Operative extremity: Neurovascularly intact Dressing clean dry and intact Calves nontender Assessment and plan: Continue with postoperative care Discharge today Objective Vital signs: Vital Signs Temp Pulse Resp BP Pulse Ox 12/26/17 04:38 98.5 F 68 16 154/67 93 12/25/17 23:26 98.9 F 69 16 175/65 95 12/25/17 20:13 98.5 F 68 16 156/46 95 12/25/17 15:35 98.4 F 67 15 139/58 96 12/25/17 10:43 97.9 F 67 14 135/56 97 12/25/17 09:32 93 12/25/17 07:41 97.3 F L 74 16 153/63 93 Intake and Output 12/25/17 12/25/17 12/26/17 15:59 23:59 07:59 Intake Total 480 / 480 200 / 200 Output Total 0 / 0 Balance 480 / 480 200 / 200 Intake: Oral 480 / 480 200 / 200 Output: Urine 0 / 0 Other: Meal Lunch Percent of Meal Consumed 80% # Voids 1 1 1 # Urine Diapers 1 - Labs CBC & BMP: 12/25/17 06:20 12/25/17 06:20 Labs: Abnormal lab results Hgb 11.3 g/dL (11.5-15.4) L 12/25/17 06:20 Glucose 157 mg/dL (70-105) H 12/25/17 06:20 - VTE Documentation of Mechanical Device: Venous foot pump, device Consult Discharge Plan - Plan Referrals: Jarred Grayson MD [Primary Care Provider] -
[2017-12-26 06:37] LABS: Hemoglobin 8.9 g/dL (11.5-15.4)
[2017-12-26 06:49] LABS: BUN/Creatinine Ratio 23 (6-26); Blood Urea Nitrogen 19 mg/dL (8-23); Calcium 8.5 mg/dL (8.6-10.3); Carbon Dioxide 25 mEq/L (23-29); Chloride 104 mEq/L (98-107); Glucose 106 mg/dL (70-105); Osmolality,Calculated 285 (280-300); Potassium 4.1 mEq/L (3.5-5.1); Sodium 136 mEq/L (136-145); eGFR For African Americans > 60 (> 60); eGFR For Non-African Americans > 60 (> 60)
[2017-12-26 06:53] VITALS: BP 170/67
== END 2017-12-26 11:30 | disposition home health service (06) | DRG 470 ==
LOC: SAMDAY 14:33 → 3NENU 19:44
PROVIDERS: ADMIT Orthopaedic Surgery; ATTEND Orthopaedic Surgery